=== PATIENT | female | born 1935 | race Caucasian/White ===

== ENCOUNTER 2022-10-30 11:30 | Inpatient (IN) | payer MEDICARE, OTHER ==
[~2022-10-30] VITALS: Ht 149.9 cm; Wt 49.4 kg
[2022-10-30 12:29] LABS: BASOPHILS % (AUTO) 0.2 % (0.0-2.0); EOSINOPHILS # (AUTO) 0.1 K/uL (0.0-0.7); EOSINOPHILS % (AUTO) 0.8 % (0.0-6.0); HEMATOCRIT 40 % (33-45); HEMOGLOBIN 12.9 g/dL (11.5-14.8); LYMPHOCYTES # (AUTO) 2.1 K/uL (0.8-4.8); LYMPHOCYTES % (AUTO) 19.7 % (20.0-44.0); MEAN CORPUSCULAR HEMOGLOBIN 30 PG (26.0-33.0); MEAN CORPUSCULAR HGB CONC 32 g/dl (31.0-36.0); MEAN CORPUSCULAR VOLUME 94 fL (82-100); MONOCYTES # (AUTO) 0.6 K/uL (0.1-1.30); MONOCYTES % (AUTO) 5.9 % (2.0-12.0); NEUTROPHILS # (AUTO) 7.9 K/uL (1.8-8.9); NEUTROPHILS % (AUTO) 73.4 % (43.0-81.0); PLATELET COUNT (AUTO) 308 K/uL (150-450); RED CELL DISTRIBUTION WIDTH 14.3 % (11.5-15.0); WHITE BLOOD COUNT (AUTO) 10.8 K/uL (4.3-11.0)
[2022-10-30] MEDS ORDERED: KETO15CR2 TP (12:36)
[2022-10-30] MEDS ORDERED: MAGN400O6 PO (12:36)
[2022-10-30] MEDS ORDERED: SUVO20TA PO (12:36)
[2022-10-30] MEDS ORDERED: GABA300C PO (12:36)
[2022-10-30] MEDS ORDERED: AMLO5TAB4 PO (12:36)
[2022-10-30] MEDS ORDERED: NA P133E RC (12:36)
[2022-10-30] MEDS ORDERED: METF-440 PO (12:36)
[2022-10-30] MEDS ORDERED: QUET25TA PO (12:36)
[2022-10-30] MEDS ORDERED: MULT-213 PO (12:36)
[2022-10-30] MEDS ORDERED: ACET-868 PO (12:36)
[2022-10-30] MEDS ORDERED: BISA10SU11 RC (12:36)
[2022-10-30] MEDS ORDERED: LOSA1TAB42 PO (12:36)
[2022-10-30 13:00] LABS: CALCIUM, SERUM 9.9 mg/dL (8.5-10.1); CARBON DIOXIDE 28 mmol/L (21-32); CHLORIDE 104 mmol/L (98-107); CREATININE 0.5 mg/dL (0.6-1.3); GLUCOSE 95 mg/dL (74-106); POTASSIUM 3.8 mmol/L (3.5-5.1); SODIUM SERUM 138 mmol/L (136-145); UREA NITROGEN, BLOOD 22 mg/dL (7-18)
[2022-10-30 13:01] LABS: INR 0.96 (0.91-1.10); PARTIAL THROMBOPLASTIN TIME 24.9 SEC (24.3-34.3); PROTHROMBIN TIME 10.1 SECS (9.2-11.1)
[2022-10-30 13:07] LABS: ALANINE AMINOTRANSFERASE 29 U/L (12-78); ALBUMIN 3.4 g/dL (3.4-5.0); ALKALINE PHOSPHATASE 87 U/L (46-116); ASPARTATE AMINOTRANSFERASE 23 U/L (15-37); BILIRUBIN,DIRECT 0.1 mg/dL (0.0-0.2); BILIRUBIN,TOTAL 0.2 mg/dL (0.2-1.0); TOTAL PROTEIN, SERUM 7.5 g/dL (6.4-8.2)
[2022-10-30] MEDS ORDERED: DEXTROSE 50%-WATER 50 ML DISP.SYRIN IV PRN (15:30)
[2022-10-30] MEDS ORDERED: MAG HYDROX/AL HYDROX/SIMETH 30 ML UDC PO PRN (15:30)
[2022-10-30] MEDS ORDERED: Z GUARD REMEDY 4 OZ OINT TP PRN (15:30)
[2022-10-30] MEDS ORDERED: MAGNESIUM HYDROXIDE 30 ML UDC PO PRN ×2 (15:30)
[2022-10-30] MEDS ORDERED: ONDANSETRON HCL/PF 4 MG/2 ML VIAL IVP PRN (15:30)
[2022-10-30] MEDS ORDERED: NA PHOS,M-B/NA PHOS,DI-BA 1 EA ENEMA RC PRN (15:30)
[2022-10-30] MEDS ORDERED: BISACODYL SUPP (10 MG) 10 MG/SUPP.RECT SUPP.RECT RC PRN (15:30)
[2022-10-30] MEDS ORDERED: HYDROCODONE/APAP 5/325MG TABLET PO PRN (15:30)
[2022-10-30] MEDS ORDERED: ACETAMINOPHEN 325 MG TABLET PO PRN ×2 (15:30)
[2022-10-30] MEDS: KETOCONAZOLE 2% CREAM 15 GM TUBE TP SCH (17:00)
[2022-10-30] MEDS: BLOOD SUGAR DIAGNOSTIC 1 EACH STRIP IN SCH ×2 (17:43→21:47)
[2022-10-30] MEDS: QUETIAPINE FUMARATE 25 MG TABLET PO SCH (17:46)
[2022-10-30] MEDS: METFORMIN 500 MG TABLET PO SCH (17:46)
[2022-10-30] MEDS: IV NS 0.9% 1,000 ML IV PRN (17:48)
[2022-10-30 20:00] VITALS: BP 127/57; TEMP 99.5; O2SAT 94
[2022-10-30] MEDS: ENOXAPARIN SODIUM 40 MG/0.4 ML DISP.SYRIN SQ SCH (21:11)
[2022-10-30] MEDS: GABAPENTIN 300 MG CAPSULE PO SCH (21:11)
[2022-10-30] MEDS: INSULIN REGULAR, HUMAN 100 UNIT/ML 3 ML VIAL SQ PRN (21:48)
[2022-10-31 04:00] VITALS: BP 136/64; TEMP 98.1; O2SAT 100
[2022-10-31] MEDS: BLOOD SUGAR DIAGNOSTIC 1 EACH STRIP IN SCH ×4 (06:19→22:15)
[2022-10-31] MEDS: INSULIN REGULAR, HUMAN 100 UNIT/ML 3 ML VIAL SQ PRN ×2 (06:21→22:16)
[2022-10-31 06:24] LABS: BASOPHILS % (AUTO) 0.3 % (0.0-2.0); EOSINOPHILS # (AUTO) 0.1 K/uL (0.0-0.7); EOSINOPHILS % (AUTO) 1.7 % (0.0-6.0); HEMATOCRIT 37 % (33-45); HEMOGLOBIN 12.2 g/dL (11.5-14.8); LYMPHOCYTES # (AUTO) 1.9 K/uL (0.8-4.8); LYMPHOCYTES % (AUTO) 26.1 % (20.0-44.0); MEAN CORPUSCULAR HEMOGLOBIN 30 PG (26.0-33.0); MEAN CORPUSCULAR HGB CONC 33 g/dl (31.0-36.0); MEAN CORPUSCULAR VOLUME 91 fL (82-100); MONOCYTES # (AUTO) 0.5 K/uL (0.1-1.30); MONOCYTES % (AUTO) 6.9 % (2.0-12.0); NEUTROPHILS # (AUTO) 4.6 K/uL (1.8-8.9); PLATELET COUNT (AUTO) 295 K/uL (150-450); RED BLOOD CELL COUNT(AUTO) 4.09 MIL/uL (4.0-5.2); RED CELL DISTRIBUTION WIDTH 13.6 % (11.5-15.0); WHITE BLOOD COUNT (AUTO) 7.1 K/uL (4.3-11.0)
[2022-10-31 07:02] LABS: CALCIUM, SERUM 9.5 mg/dL (8.5-10.1); CARBON DIOXIDE 27 mmol/L (21-32); CHLORIDE 105 mmol/L (98-107); CREATININE 0.5 mg/dL (0.6-1.3); GLUCOSE 93 mg/dL (74-106); MAGNESIUM 1.8 mg/dL (1.8-2.4); PHOSPHORUS 3.1 mg/dL (2.5-4.9); POTASSIUM 3.7 mmol/L (3.5-5.1); SODIUM SERUM 139 mmol/L (136-145); UREA NITROGEN, BLOOD 18 mg/dL (7-18)
[2022-10-31 08:10] VITALS: BP 149/75; TEMP 98.3; O2SAT 96
[2022-10-31] MEDS: QUETIAPINE FUMARATE 25 MG TABLET PO SCH ×2 (09:37→16:35)
[2022-10-31] MEDS: MULTIVIT W/MINERALS 1 TAB TABLET PO SCH (09:37)
[2022-10-31] MEDS: METFORMIN 500 MG TABLET PO SCH ×2 (09:37→16:35)
[2022-10-31] MEDS: PANTOPRAZOLE 40 MG TABLET.DR PO SCH (09:46)
[2022-10-31] MEDS: KETOCONAZOLE 2% CREAM 15 GM TUBE TP SCH ×2 (10:13→17:01)
[2022-10-31] MEDS: IV NS 0.9% 1,000 ML IV PRN (10:15)
[2022-10-31 12:00] VITALS: BP 151/52; TEMP 97.9; O2SAT 97
[2022-10-31 16:00] VITALS: BP 157/55; TEMP 98.8; O2SAT 96
[2022-10-31 20:00] VITALS: BP 139/64; TEMP 97.9; O2SAT 95
[2022-10-31] MEDS: GABAPENTIN 300 MG CAPSULE PO SCH (21:06)
[2022-10-31] MEDS: hydrALAZINE HCL 25 MG TABLET PO PRN (21:06)
[2022-10-31] MEDS: ENOXAPARIN SODIUM 40 MG/0.4 ML DISP.SYRIN SQ SCH (21:07)
[2022-11-01] VITALS: BP 139/64; TEMP 97.6; O2SAT 95
[2022-11-01 02:41] LABS: APPEARANCE,URINE CLEAR (CLEAR); BILIRUBIN,URINE NEGATIVE (NEGATIVE); BLOOD, URINE TRACE-INTA Ery/uL (NEGATIVE); COLOR,URINE YELLOW (YELLOW); KETONES,URINE NEGATIVE (NEGATIVE); LEUKOCYTE ESTERASE ,URINE 1+ (NEGATIVE); NITRITE, URINE POSITIVE (NEGATIVE); PH,URINE 7.5 (5.0-8.0); PROTEIN,URINE NEGATIVE (NEGATIVE); UGLUCOSE NEGATIVE (NEGATIVE)
[2022-11-01 02:53] LABS: ADD URINE CULTURE YES; BACTERIA,URINE Moderate /HPF (None Seen); RBC,URINE 0-2 /HPF (0-2); SQUAMOUS EPITHELIAL CELL,UR Rare /HPF (None Seen)
[2022-11-01 04:00] VITALS: BP 142/69; TEMP 97.9; O2SAT 95
[2022-11-01] MEDS: BLOOD SUGAR DIAGNOSTIC 1 EACH STRIP IN SCH ×4 (06:15→21:57)
[2022-11-01] MEDS: INSULIN REGULAR, HUMAN 100 UNIT/ML 3 ML VIAL SQ PRN ×2 (06:16→22:14)
[2022-11-01 06:38] LABS: BASOPHILS % (AUTO) 0.4 % (0.0-2.0); EOSINOPHILS # (AUTO) 0.2 K/uL (0.0-0.7); EOSINOPHILS % (AUTO) 3.4 % (0.0-6.0); HEMATOCRIT 37 % (33-45); HEMOGLOBIN 12.1 g/dL (11.5-14.8); LYMPHOCYTES # (AUTO) 1.7 K/uL (0.8-4.8); LYMPHOCYTES % (AUTO) 26.5 % (20.0-44.0); MEAN CORPUSCULAR HEMOGLOBIN 30 PG (26.0-33.0); MEAN CORPUSCULAR HGB CONC 33 g/dl (31.0-36.0); MEAN CORPUSCULAR VOLUME 90 fL (82-100); MONOCYTES # (AUTO) 0.5 K/uL (0.1-1.30); NEUTROPHILS # (AUTO) 3.8 K/uL (1.8-8.9); NEUTROPHILS % (AUTO) 61.7 % (43.0-81.0); PLATELET COUNT (AUTO) 284 K/uL (150-450); RED BLOOD CELL COUNT(AUTO) 4.05 MIL/uL (4.0-5.2); RED CELL DISTRIBUTION WIDTH 13.9 % (11.5-15.0); WHITE BLOOD COUNT (AUTO) 6.2 K/uL (4.3-11.0)
[2022-11-01 06:58] LABS: ALANINE AMINOTRANSFERASE 29 U/L (12-78); ALBUMIN 3.2 g/dL (3.4-5.0); ALKALINE PHOSPHATASE 91 U/L (46-116); ASPARTATE AMINOTRANSFERASE 22 U/L (15-37); BILIRUBIN,TOTAL 0.6 mg/dL (0.2-1.0); CALCIUM, SERUM 9.4 mg/dL (8.5-10.1); CARBON DIOXIDE 28 mmol/L (21-32); CHLORIDE 108 mmol/L (98-107); CREATININE 0.6 mg/dL (0.6-1.3); GLUCOSE 90 mg/dL (74-106); MAGNESIUM 1.9 mg/dL (1.8-2.4); PHOSPHORUS 3.5 mg/dL (2.5-4.9); POTASSIUM 3.8 mmol/L (3.5-5.1); SODIUM SERUM 142 mmol/L (136-145); TOTAL PROTEIN, SERUM 6.7 g/dL (6.4-8.2); UREA NITROGEN, BLOOD 15 mg/dL (7-18)
[2022-11-01] MEDS: PANTOPRAZOLE 40 MG TABLET.DR PO SCH (07:30)
[2022-11-01] MEDS: QUETIAPINE FUMARATE 25 MG TABLET PO SCH ×2 (08:58→17:04)
[2022-11-01] MEDS: MULTIVIT W/MINERALS 1 TAB TABLET PO SCH (08:58)
[2022-11-01] MEDS: METFORMIN 500 MG TABLET PO SCH ×2 (08:58→17:04)
[2022-11-01] MEDS: KETOCONAZOLE 2% CREAM 15 GM TUBE TP SCH ×2 (08:59→17:04)
[2022-11-01] MEDS: IV NS 0.9% 1,000 ML IV PRN (14:36)
[2022-11-01] MEDS: GLUCERNA SHAKE 237 ML CAN PO SCH (17:04)
[2022-11-01 20:00] VITALS: BP 151/67; TEMP 97.9; O2SAT 95
[2022-11-01] MEDS: ENOXAPARIN SODIUM 40 MG/0.4 ML DISP.SYRIN SQ SCH (21:53)
[2022-11-01] MEDS: GABAPENTIN 300 MG CAPSULE PO SCH (21:57)
[2022-11-02] VITALS: BP 155/56; TEMP 97.9; O2SAT 97
[2022-11-02 04:00] VITALS: BP 133/79; TEMP 97.7; O2SAT 97
[2022-11-02] MEDS: IV NS 0.9% 1,000 ML IV PRN (04:43)
[2022-11-02] MEDS: INSULIN REGULAR, HUMAN 100 UNIT/ML 3 ML VIAL SQ PRN (06:31)
[2022-11-02] MEDS: BLOOD SUGAR DIAGNOSTIC 1 EACH STRIP IN SCH ×2 (06:31→12:19)
[2022-11-02 07:00] VITALS: BP 176/61; TEMP 97.5; O2SAT 98
[2022-11-02] MEDS: PANTOPRAZOLE 40 MG TABLET.DR PO SCH (07:46)
[2022-11-02] MEDS: GLUCERNA SHAKE 237 ML CAN PO SCH (08:37)
[2022-11-02] MEDS: MULTIVIT W/MINERALS 1 TAB TABLET PO SCH (09:10)
[2022-11-02] MEDS: METFORMIN 500 MG TABLET PO SCH (09:10)
[2022-11-02] MEDS: QUETIAPINE FUMARATE 25 MG TABLET PO SCH (09:10)
[2022-11-02] MEDS: hydrALAZINE HCL 25 MG TABLET PO PRN (09:11)
[2022-11-02] MEDS: KETOCONAZOLE 2% CREAM 15 GM TUBE TP SCH (09:25)
[2022-11-02 12:00] VITALS: BP 151/89; TEMP 98.8; O2SAT 94
[2022-11-02] MEDS ORDERED: EMPA10TA PO (13:03)
[2022-11-02] MEDS ORDERED: LOSA100T31 PO (13:03)
== END 2022-11-02 16:00 | DRG 74 ==
LOC: ER 11:39 → TELE 16:30
PROVIDERS: ATTEND Nurse Practitioner Family
DX: G90.8 Other disorders of autonomic nervous system (principal); K59.00 Constipation, unspecified; I10 Essential (primary) hypertension; S00.01XA Abrasion of scalp, initial encounter; W01.0XXA Fall on same level from slipping, tripping and stumbling without subsequent striking against object, initial encounter; Y92.129 Unspecified place in nursing home as the place of occurrence of the external cause; Z79.84 Long term (current) use of oral hypoglycemic drugs; F03.90 Unspecified dementia, unspecified severity, without behavioral disturbance, psychotic disturbance, mood disturbance, and anxiety; Z79.899 Other long term (current) drug therapy; K21.9 Gastro-esophageal reflux disease without esophagitis; E11.42 Type 2 diabetes mellitus with diabetic polyneuropathy; F29 Unspecified psychosis not due to a substance or known physiological condition
CPT/HCPCS: 36415; 70450-TC; 71045-TC; 80048-TC; 80053-TC; 80076-TC; 81001; 82962-TC; 83735-TC; 84100-TC; 84484-TC; 85025-TC; 85730-TC; 87081-TC; 87086-TC; 93307-TC; 93880-TC; 97116-TC; 97530-TC; A4223; A6403; G0378; J1650; J1815; J7030